=== PATIENT | male | born 1950 | race Caucasian/White ===

== ENCOUNTER → 2019-01-13 | Outpatient (CLI) | payer MEDICARE | END | disposition home or self-care (01) | LOC: PCVCCLINIC 10:00 | PROVIDERS: ATTEND Internal Medicine | DX: I25.10 Atherosclerotic heart disease of native coronary artery without angina pectoris (principal); R93.1 Abnormal findings on diagnostic imaging of heart and coronary circulation; E78.5 Hyperlipidemia, unspecified; E11.9 Type 2 diabetes mellitus without complications; R00.1 Bradycardia, unspecified; M19.90 Unspecified osteoarthritis, unspecified site; E03.9 Hypothyroidism, unspecified; Z79.899 Other long term (current) drug therapy | CPT/HCPCS: 93005; G0463 ==

== ENCOUNTER → 2019-01-14 | Outpatient (CLI) | payer MEDICARE ==
[~2019-01-14] MED LIST: REGADENOSON 0.4 MG/5 ML DISP.SYRIN. IV ONE
--- NOTE | 2019-01-14 13:23 | PCVCIMAG ---
APPROVED REPORT Imaging Protocol: Rest Tc-99m/Stress Tc-99m 1 day Study performed: 01/14/2019 10:17:31 Indication: CAD Patient Location: Out-Patient Stress Nurse: Ekta Tello RN, Anahi Sunshine RN [place] Tech:Kathryn Sauceda [facility] Ht: 5 ft 8 in Wt: 236 lbs BSA: 2.19 m2 HR: 76 bpm BP: 105/57 mmHg BMI: 35.87 Rhythm: Normal Sinus Rhythm Medical History Medical History: CAD, High Ca Score Medications: Simvastatin, Chlorthalidone, Metformin Allergies: No known drug allergies Cardiac Risk Factors: Age Exercise History: Indeterminate Resting Data Rest SPECT myocardial perfusion imaging was performed in supine position 45 minutes following the intravenous injection of 9.8 mCi of Tc-99m Sestamibi. Time of rest injection: 0930 Date: 01/14/2019 Administration Route: IV Administration Site: Left AC Pharmacologic Stress Pharmacologic stress test was performed by injecting Regadenoson 0.4 mg IV push over 10-15 seconds immediately followed by the intravenous injection of 33.5 mCi of Tc-99m Sestamibi. Time of stress injection: 1050 Date: 01/14/2019 Administration Route: IV Administration Site: Left AC Gated Stress SPECT was performed 45 minutes after stress injection. The images were gated to evaluate regional wall motion and calculate left ventricular ejection fraction. Stress Test Details Stress Test: Pharmacologic stress was paired with low level exercise. Reason for pharmacologic stress test: physical limitation. HRMax Heart Rate (APMHR): 153 bpm Resting HR: 76 bpmTarget HR (85% APMHR): 130 bpm Max HR Achieved: 82 bpm % of APMHR: 53 Recovery HR: 68 bpm BP Resting BP: 105/577 mmHg Max BP: 118/60 mmHg Recovery BP: 131/62 mmHg ECG Resting ECG: Normal Sinus Rhythm Stress ECG: Normal Sinus Rhythm Arrhythmia: PVC's Recovery ECG: Normal Sinus Rhythm Clinical Reason for Termination: Completed protocol Stress Symptoms: Nausea Exercise duration: 4 min 00 sec Exercise capacity: 1.6 METs Symptoms resolved with caffeine. Stress ECG Conclusion 1. Adequate response to intravenous Lexiscan 2. Inadequate heart rate for ECG diagnosis Study Data Post stress, the left ventricular ejection was 66%.. SSS: 0 SRS: 1 SDS: 0 TID = 0.95. Perfusion There is a large area of moderately reduced uptake in the entire segment of the inferior wall which is seen on the stress images as well as the resting images. This area thickens and moves normally and is most consistent with attenuation artifact. Wall Motion Normal left ventricular wall motion. Nuclear Conclusion ECG Findings: non-diagnostic Clinical Findings: negative for ischemia Nuclear Findings: negative for ischemia Exercise Capacity: not assessed Left Ventricular Function: normal 1. Low risk study 2. Post exercise left ventricle ejection fraction 66% without wall motion abnormalities <Conclusion> 1. Adequate response to intravenous Lexiscan 2. Inadequate heart rate for ECG diagnosis
== END | disposition home or self-care (01) ==
LOC: PCVCIMAG 09:07
PROVIDERS: ATTEND Internal Medicine
DX: I25.10 Atherosclerotic heart disease of native coronary artery without angina pectoris (principal); R93.1 Abnormal findings on diagnostic imaging of heart and coronary circulation
CPT/HCPCS: 78452; 93017; A9500; J2785